=== PATIENT | female | born 1985 | race Caucasian/White ===

== ENCOUNTER 2021-02-18 08:24 | Emergency (ER) | payer OTHER ==
[~2021-02-18] VITALS: Ht 165.1 cm; Wt 63.6 kg
[2021-02-18 08:47] VITALS: BP 114/73
[2021-02-18] MEDS ORDERED: OFLO5DRO7 AS (09:14)
[2021-02-18] MEDS ORDERED: CIPR500T2 PO (09:14)
--- NOTE | 2021-02-18 09:14 | PHYS DOC ---
Past History Past Medical History: No Pertinent History Past Surgical History: No Surgical History Alcohol Use: Occasionally General Adult EDM: Chief Complaint: EARACHE/EAR PAIN HPI: HPI: 35-year-old female with no significant past medical history presents to the ED with complaints of red tender ear lobe that started yesterday. Patient states for the past month she has been seen by 2 physicians and mostly recent, 1 ENT (ENT on 02/09/21), for recurrent otitis externa infections treated with ciprofloxacin eardrops and another eardrop with acetic acid. Patient states she was told by ENT her infection had resolved. Cannot recall any trauma to the ear. No new earrings. Patient with no history of chickenpox, vaccines up-to-date. Patient with no history of immunocompromised state-no diabetes or daily steroids. Patient denies any associated fever, headache, nuchal rigidity, ear drainage, fluid-filled lesions, dizziness, tinnitus or seizures. Review of Systems: Review of Systems: Constitutional: Denies fever or chills Eyes: Denies change in visual acuity HENT: Denies nasal congestion or sore throat Respiratory: Denies cough or shortness of breath Cardiovascular: Denies chest pain or edema GI: Denies nausea, vomiting, Musculoskeletal: Denies back pain or joint pain Integument: Denies diaphoresis or fluid filled lesions Neurologic: Denies headache, neck pain/stiffness, dizziness, focal weakness or sensory changes Psychiatric: Denies depression or anxiety Physical Exam: PE: Constitutional: Well developed, well nourished, no acute distress, non-toxic appearance. HENT: Normocephalic, atraumatic, normal right TM/normal right ear exam, normal left TM, left auricle/pinna/lobule erythematous with no fluid filled lesions or fluctance/no auricular crease obliteration, erythematous left external auditory canal, no mastoid ttp bl, Eyes: EOMI, conjunctiva normal, no discharge. Neck: Normal range of motion, supple, no nuchal rigidity or meningitis Cardiovascular: S1/2 present, regular rhythm Lungs & Thorax: Speaking in full sentences, bilateral equal chest rise, no tachypnea or increased work of breathing Abdomen: soft, no tenderness, Skin: Warm, dry, Extremities: No tenderness, no cyanosis, Neurologic: Alert and oriented X 3, normal motor function, normal sensory function, no focal deficits noted. [] Psychologic: Affect normal, judgement normal, mood normal. [] Current Patient Data: Vital Signs: Vital Signs Date Time Temp Pulse Resp B/P (MAP) Pulse Ox O2 Delivery O2 Flow Rate FiO2 02/18/21 08:47 98.3 103 18 114/73 (87) 99 EKG: EKG: [] Radiology/Procedures: Radiology/Procedures: [] Heart Score: C/O Chest Pain: No Risk Factors: Risk Factors: DM, Current or recent (<one month) smoker, HTN, HLP, family history of CAD, obesity. Risk Scores: Score 0 - 3: 2.5% MACE over next 6 weeks - Discharge Home Score 4 - 6: 20.3% MACE over next 6 weeks - Admit for Clinical Observation Score 7 - 10: 72.7% MACE over next 6 weeks - Early Invasive Strategies Course & Med Decision Making: Course & Med Decision Making Pertinent Labs and Imaging studies reviewed. (See chart for details) Concern for acute (24 hours) auricular perichondritis vs <<< malignant otitis externa (given timeline/duration of sxs and the fact the lobule is erythematous) in a very well appearing female, afebrile. Will discharge home with strict ED return precautions-typed on her dc papers. Pt was given printed information on malignant external otitis and auricular perichondritis. Encouraged urgent outpatient follow-up with PMD within 1 week and ENT on Saturday/. Life- threatening processes were considered but are low suspicion at this time, given history, physical exam and ED workup. Pt was educated on all prescription medications and adverse effects. All patient's questions were answered and pt was stable at time of discharge. Life/limb-threatening differential includes but is not limited to, auricular hematoma, otitis media, otomycosis, bullous myringitis, mastoiditis, hearing loss or vestibular disorder, tympanic membrane rupture/perforation/barotrauma, herpes zoster oticus, contact dermatitis, cholesteatoma, meningiti/cephalitis, brain abscess or venous/cavernous/cerebral sinus thrombosis. I spoken with the patient and her caregivers. I explained the patient's condition, diagnoses and treatment plan based on the information available to me at this time. I have answered the patient and her caregiver's questions and addressed any concerns. The patient and her caregivers have a good understanding of patient's diagnosis, condition and treatment plan as can be expected at this point. Vital signs have been stable. Patient's condition is stable and appropriate for discharge from the emergency department. Patient will pursue further outpatient evaluation with primary care physician or other designated or consulting physician as outlined in the discharge instructions. The patient and/or caregivers are agreeable to this plan of care and follow-up instructions have been explained in detail. The patient and/or caregivers have received these instructions in written form and have expressed an understanding of the discharge instructions. The patient and/or caregivers are aware that any significant change of condition or worsening of symptoms should prompt immediate return to this or the closest emergency department or call to 194. Rosalio Disclaimer: Food and Beverage Disclaimer: This electronic medical record was generated, in whole or in part, using a voice recognition dictation system. 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 [address] [place] [address] [address] [place] [address] EMERGENCY DEPARTMENT GENERAL DISCHARGE INSTRUCTIONS Thank you for coming to [facility] (ED) today and trusting us with you care. We trust that you had a positivie experience in our Emergency Department. If you wish to speak to the department management, you may call the director at [phone]. YOUR FOLLOW UP INSTRUCTIONS ARE FOLLOWS: 1. Do you have a private Doctor? If you do not have a private doctor, please ask for a resource list of physicians or clinics that may be able to assist you with follow up care. 2. The Emergency Physician has interpreted your x-rays. The X-Ray specialist will also review them. If there is a change in the findings, you will be notified in 48 hours when at all possible. 3. A lab test or culture has been done, your results will be reviewed and you will be notified if you need a change in treatment. ADDITIONAL INSTRUCTIONS AND INFORMATION: 1. Your care today has been supervised by a physician who is specially trained in emergency care. Many problems require more than one evaluation for a complete diagnosis and treatment. We recommend that you schedule your follow up appointment as recommended to ensure complete treatment of you illness or injury. If you are unable to obtain follow up care and continue to have a problem, or if your condition worsens, we recommend that you return to the ED. 2. We are not able to safely determine your condition over the phone nor are we able to give sound medical advice over the phone. For these safety reasons, if you call for medical advice we will ask you to come to the ED for further evaluation. 3. If you have any questions regarding these discharge instructions please call the ED at [phone]. SAFETY INFORMATION: In the interest of safety, wellness, and injury prevention; we encourage you to wear your sealbelt, if you smoke; quite smoking, and we encourage family to use a protective helmet for bicycling and other sporting events that present an increased risk for head injury. IF YOUR SYMPTOMS WORSEN OR NEW SYMPTOMS DEVELOP, OR YOU HAVE CONCERNS ABOUT YOUR CONDITION; OR IF YOUR CONDITION WORSENS WHILE YOU ARE WAITING FOR YOUR FOLLOW UP APPOINTMENT; EITHER CONTACT YOUR PRIMARY CARE DOCTOR, THE PHYSICIAN WHOSE NAME AND NUMBER YOU WERE GIVEN, OR RETURN TO THE ED IMMEDIATELY. Scripts Ofloxacin (OFLOXACIN) 5 Ml Drops 5 DROP BID for ear infection for 10 Days, #10 ML 0 Refills Prov: BRITNEY MANN DO 02/18/21 Ciprofloxacin Hcl (CIPROFLOXACIN HCL) 500 Mg Tablet 1 TAB PO BID for ear infection for 10 Days, #20 TAB Prov: BRITNEY MANN DO 02/18/21 BRITNEY MANN DO February 18, 2021 09:14
== END 2021-02-18 09:17 | disposition home or self-care (01) ==
LOC: ER 08:24
DX: H60.22 Malignant otitis externa, left ear (principal); H61.002 Unspecified perichondritis of left external ear
CPT/HCPCS: 99283

== ENCOUNTER 2021-02-26 09:10 | Emergency (ER) | payer OTHER ==
[~2021-02-26] VITALS: Ht 165.1 cm; Wt 63.6 kg
[2021-02-26 09:10] VITALS: BP 120/73
[~2021-02-26 09:10] MED LIST: CIPR500T2 PO; OFLO5DRO7 AS
--- NOTE | 2021-02-26 09:51 | PHYS DOC ---
Past History Past Medical History: No Pertinent History Past Surgical History: No Surgical History Alcohol Use: Occasionally General Adult EDM: Chief Complaint: EARACHE/EAR PAIN HPI: HPI: Patient is a 35-year-old female coming in for 2 small spots of bleeding from her left ear. Was seen here just over a week ago and treated for auricular perichondritis. Patient states her ear has been doing much better. Followed up with her ENT doctor and was switched from ofloxacin drops to mupirocin ointment. Says she has been cleaning her ear with a washcloth 3 times a day. This morning had 2 small spots. Says overall symptoms have improved but is concerned about abscess from the sites of bleeding. Review of Systems: Review of Systems: All other systems within normal limits except for as noted in the HPI Allergies: Allergies: Allergies Coded Allergies Type Severity Reaction Last Updated Verified No Known Drug Allergies 02/26/21 No Physical Exam: PE: Constitutional: Well developed, well nourished, no acute distress, non-toxic appearance. [] HENT: Normocephalic, atraumatic, bilateral external ears normal, to 1 mm red spots on antitragus of left ear, no swelling, mild erythema and debris in the canal, TM normal., nose normal. [] Eyes: PERRLA, conjunctiva normal, no discharge. [] Neck: No rigidity, supple, no stridor. [] Cardiovascular: Regular rate and rhythm, brisk cap refill [] Lungs & Thorax: Non labored symmetric respirations, no tachypnea or respiratory distress [] Abdomen: Soft, nondistended. Skin: Warm, dry, no erythema, no rash. [] Back: Unremarkable Extremities: No deformities, range of motion grossly intact, no lower extremity edema [] Neurologic: Alert and oriented X 3, no focal deficits noted. [] Psychologic: Affect normal, judgement normal, mood normal. [] Current Patient Data: Vital Signs: Vital Signs Date Time Temp Pulse Resp B/P (MAP) Pulse Ox O2 Delivery O2 Flow Rate FiO2 02/26/21 09:10 97.7 85 16 120/73 (89) 99 Room Air EKG: EKG: [] Radiology/Procedures: Radiology/Procedures: [] Heart Score: C/O Chest Pain: No Risk Factors: Risk Factors: DM, Current or recent (<one month) smoker, HTN, HLP, family history of CAD, obesity. Risk Scores: Score 0 - 3: 2.5% MACE over next 6 weeks - Discharge Home Score 4 - 6: 20.3% MACE over next 6 weeks - Admit for Clinical Observation Score 7 - 10: 72.7% MACE over next 6 weeks - Early Invasive Strategies Course & Med Decision Making: Course & Med Decision Making Pertinent Labs and Imaging studies reviewed. (See chart for details) [] Dragon Disclaimer: Dragon Disclaimer: This electronic medical record was generated, in whole or in part, using a voice recognition dictation system. Departure Departure: Impression: Primary Impression: Irritation of left ear Disposition: HOME / SELF CARE / HOMELESS Condition: STABLE Referrals: JESSIE WILKES (PCP) Patient Instructions: Otitis Externa RACHEL GOMEZ MD February 26, 2021 09:51
== END 2021-02-26 09:56 | disposition home or self-care (01) ==
LOC: ER 09:10
DX: H93.8X2 Other specified disorders of left ear (principal); H92.22 Otorrhagia, left ear
CPT/HCPCS: 99281